=== PATIENT | male | born 1980 | race Caucasian/White ===

== ENCOUNTER 2016-05-23 17:09 | Emergency (ER) | payer OTHER ==
[~2016-05-23] VITALS: Ht 162.6 cm; Wt 92.7 kg
[2016-05-23 17:16] VITALS: TEMP 37.2; Ht 162.6 cm; Wt 92.7 kg
--- NOTE | 2016-05-23 18:01 | DIAGNOSTIC IMAGING REPORT ---
LEFT ANKLE MIN 3 VIEWS ROUTINE CLINICAL HISTORY: LEFT ANKLE INJURY trauma. Pain. COMPARISON: None. DISCUSSION: The bones and joint spaces appear intact. There is no evidence of fracture, dislocation or bony disease. There is no evidence for soft tissue swelling. IMPRESSION: Negative study. Electronically signed by: Juan Batres M.D. 05/23/2016 6:00 PM Dictated Date/Time: 05/23/2016 5:59 PM
[2016-05-23] MEDS ORDERED: IBUP-1050 PO (18:45)
--- NOTE | 2016-05-23 19:08 | DIAGNOSTIC IMAGING REPORT ---
LEFT FOOT MIN 3 VIEWS ROUTINE CLINICAL HISTORY: L foot pain pain COMPARISON: None. DISCUSSION: The bones and joint spaces appear intact. There is no evidence of fracture, dislocation or bony disease. There is no evidence for soft tissue swelling. IMPRESSION: Negative study. Electronically signed by: Juan Batres M.D. 05/23/2016 7:07 PM Dictated Date/Time: 05/23/2016 7:07 PM
[2016-05-23 20:21] VITALS: BP 147/98; PULSE 72; O2SAT 98
--- NOTE | 2016-05-24 03:06 | EMERGENCY ROOM VISIT NOTE ---
ED Visit Note First contact with patient: 17:42 CHIEF COMPLAINT: Left foot and ankle pain HISTORY OF PRESENT ILLNESS: Mr. Moncada is a 36-year old white male who is brought via wheelchair into the ED complaining of left foot pain. He reports approximately 1 hour ago he was walking at work and developed an acute onset of left foot pain under the great toe. Since that time he has been having severe pain during the push off phase of ambulation over the sesamoid bones under the great toe. He describes his pain as a sharp sensation. He rates his discomfort 5/10. With ambulation and pushing off his pain does radiate superiorly and around the posterior aspect of the ankle to the lower tibia area. His pain is improved with non-ambulation or weightbearing. He has not taken any medications for pain prior to arrival at the hospital. He denies any associated symptoms including hip pain, knee pain, lower leg pain, leg weakness/numbness/tingling. Additionally he denies any previous significant injuries or surgeries to the left ankle or foot. REVIEW OF SYSTEMS: As noted above in History of Present Illness. PAST MEDICAL HISTORY: CURRENT MEDICATIONS: Ibuprofen. ALLERGIES TO MEDICATIONS: Patient denies. SOCIAL HISTORY: PHYSICAL EXAM: Vital Signs: Date Time Temp Pulse Resp B/P Pulse Ox O2 Delivery O2 Flow Rate FiO2 05/23/16 20:21 72 18 147/98 98 Room Air 05/23/16 17:16 37.2 81 18 179/95 97 Room Air General: 36 year old male in mild distress due to pain, nontoxic-appearing, afebrile and hemodynamically stable. Neurological: Awake, alert, oriented to person place and time. Answering questions appropriately and following commands. Skin: Warm dry and pink. No soft tissue trauma noted. Left Lower Extremity: No gross eloy deformities. No tenderness in the hip or knee. Mild tenderness over the posterior aspect of the medial malleolus without bony deformity, bony crepitus, swelling or ecchymosis. Moderate tenderness over the medial aspect of the foot which extends to the plantar surface and over the sesamoid bones of the great toe. There is also moderate tenderness in the interphalangeal joint of the toe. I do not appreciate any bony tenderness or swelling in this area. Throughout the toes the skin was warm and pink and capillary refill is brisk. He was able to distinguish light sensations through all dermatomes of the foot. Distal pulses are intact. No calf tenderness or cords. No dependent edema. ED COURSE: Patient is assessed as noted above. Left Ankle X-Rays: Was read by myself and the radiologist showing no acute fractures or dislocations. Left Foot X-Rays: Was read by myself and the radiologist shows a questionable fracture of the lateral sesamoid bone of the great toe; it should be noted this is the primary area of his painful discomfort. No previous films were noted for comparison. Patient is given ice for pain, swelling and comfort; patient was offered pain medications and refused. Patient is placed in a postop shoe and is instructed on crutch use. Patient is educated about his condition and instructed on his treatment plan; he verbalizes understanding and agreement with the our plan. CLINICAL IMPRESSION: Left great toe sesamoid fracture. Work related injury. DISPOSITION: Patient is discharged to home in stable condition accompanied by his ; prior to departure he was reassessed and subjectively reported he was feeling the same. PLAN: Comfort measures were discussed with the patient. Patient was placed on work restrictions for only nonweightbearing activities. Patient should follow-up with an Workmen's import/export specialist for possible referral to orthopedics. Patient should return ED as needed for increasing pain or swelling or any new/ concerning symptoms.
== END 2016-05-23 20:35 | disposition home or self-care (01) ==
LOC: C.EDB 17:10 → C.EDD 20:35
DX: S92.812A Other fracture of left foot, initial encounter for closed fracture (principal); X58.XXXA Exposure to other specified factors, initial encounter; Y92.89 Other specified places as the place of occurrence of the external cause; Y99.0 Civilian activity done for income or pay

== ENCOUNTER 2016-08-01 11:53 | Emergency (ER) | payer OTHER ==
[~2016-08-01] VITALS: Ht 170.2 cm; Wt 91.9 kg
[~2016-08-01 11:53] MED LIST: IBUP-1050 PO
[2016-08-01 11:59] VITALS: TEMP 36.8; Ht 170.2 cm; Wt 91.9 kg
--- NOTE | 2016-08-01 12:38 | DIAGNOSTIC IMAGING REPORT ---
SOFT TISSUE NECK CLINICAL HISTORY: neck pain following swallowing food COMPARISON STUDY: Lateral view the cervical spine dated 05/28/2008 FINDINGS: There is nonspecific asymmetry in the retropharyngeal soft tissues. There is a punctate radiopacity visualized superior to the epiglottis on the lateral view. This is not confirmed on the AP film. Granular ringlike radiopacities projected over the superior C4 vertebral body to the right of midline on the AP film are not visualized the lateral film and are likely artifactual. IMPRESSION: 1. Nonspecific asymmetry in the retropharyngeal soft tissues 2. Punctate radiopacity located superior to the epiglottis on the lateral view. 3. No epiglottic masses identified. Electronically signed by: Samm Green M.D. 08/01/2016 12:37 PM Dictated Date/Time: 08/01/2016 12:32 PM
[2016-08-01 12:50] LABS: BASO % 0.6 %; BASO ABS # 0.04 K/uL (0-0.2); COMPLETE YES; EOS % 1.2 %; HEMATOCRIT 45.4 % (42-52); IG% 0.1 %; LYMPH % 29.4 %; LYMPH ABS # 2.04 K/uL (1.2-3.4); MEAN CELL VOLUME 85.7 fL (80-100); MEAN CORPUSCULAR HEMOGLOBIN 28.7 pg (25-34); MEAN CORPUSCULAR HGB CONC 33.5 g/dl (32-36); MONO % 6.8 %; NEUT % 61.9 %; PLATELET COUNT 175 K/uL (130-400); WHITE BLOOD COUNT 6.93 K/uL (4.8-10.8)
[2016-08-01 13:12] LABS: BUN/CREATININE RATIO 11.8 (10-20); CALCIUM 8.7 mg/dl (8.5-10.1); CREATININE 1.1 mg/dl (0.60-1.40); POTASSIUM 4.2 mmol/L (3.5-5.1)
--- NOTE | 2016-08-01 13:24 | CONSULTATION REPORT ---
DATE OF CONSULTATION: 08/01/2016 EMERGENCY ROOM CONSULTATION HISTORY: This 36-year-old male was cleaning a grill with a metal scrub brush. He made some mountain pies and when he was swallowing, he felt jagging sensation on the left side of the throat. He immediately spit, but continued to have pain from Monday to today, although he said his pain is diminishing each day. PAST MEDICAL HISTORY: Otherwise, negative. ALLERGIES: None known. CURRENT MEDICATIONS: Ibuprofen. REVIEW OF SYSTEMS: Otherwise, negative. PHYSICAL EXAMINATION: GENERAL: WNWD male, in no acute distress. VITAL SIGNS: Temperature 36.8, BP 154/97, pulse 74, respirations 20, temperature is 36.8. HEAD: Normocephalic. EYES: Normal. EARS: Tympanic membranes intact. NOSE: Septal deviation to the left. THROAT: 3+ tonsillar hypertrophy with Midline uvula with no evidence of foreign body visible and no erythema, no sign of abscess. NECK: Supple, no adenopathy. IMAGING DATA: The lateral neck soft tissue x-ray showed a nonspecific asymmetry with punctate radiopacity superior to the epiglottis; on the lateral view, but not on the AP view, although specifically there is no sign of a stainless steel wire brush needle. IMPRESSION: Possible foreign body in pharynx. RECOMMENDATIONS: The patient should stay on a soft diet and follow up with me tomorrow if he is getting worse or next week if he continues to get better. If his symptoms does increase overnight, I will take him to the operating room for direct laryngoscopy and further exploration of his throat for foreign body.
[2016-08-01 13:36] VITALS: BP 140/78; PULSE 62; O2SAT 97
--- NOTE | 2016-08-01 17:59 | EMERGENCY ROOM VISIT NOTE ---
History Report prepared by Day: Rianna Toledo Under the Supervision of: Dr. Luis Desai D.O. First contact with patient: 12:02 Chief Complaint: FOOD BOLUS Stated Complaint: FEELS LIKE SOMETHING IN BACK OF THROAT History of Present Illness The patient is a 36 year old male who presents to the Emergency Room with complaints of constant throat discomfort that started 2 days ago. The patient states that he ate mountain pies 2 nights ago and ever since then it has felt like something is "lodged in the back of his throat." He states that he took one bite of the mountain pie then it felt like the food got stuck in the back of his throat. The patient has been experiencing pain in his throat ever since then. The patient vomited after trying to swallow that bite. He did not see anything in the vomit that could have scratched his throat. He states that he is concerned that there might have been a metal wire in the mountain pies because he cleaned the pie pans with a metal bristle before they made the mountain pies. He states that he is able to drink fluids and the discomfort is worse with cold water. The patient experienced nausea and vomiting earlier today after drinking water around 1000. The patient states that he has not eaten anything today because he was worried that he might need to have a scope done. He originally denied any ear pain, but after examination he started to experience some pain radiating into his left ear. The patient denies chest pain , shortness of breath, diarrhea, and pain or burning with urination. Source of History: patient Onset: 2 days ago Position: throat Quality: other (throat discomfort) Timing: constant Modifying Factors (Worsening): drinking (cold water), other (swallowing) Associated Symptoms: + nausea, + vomiting, No chest pain, No SOB, No diarrhea, No urinary symptoms (pain or burning with urination) Note: left ear pain Review of Systems See HPI for pertinent positives & negatives. A total of 10 systems reviewed and were otherwise negative. Past Medical & Surgical Medical Problems: (1) Carpal Tunnel Syndrome (2) Chronic Rhinitis (3) Chronic Sinusitis Nos (4) Esophageal Reflux (5) Palpitations Family History Cancer Diabetes mellitus Hypertension Social History Smoking Status: Never Smoker Alcohol Use: none Marital Status: Occupation Status: employed Current/Historical Medications Scheduled Ibuprofen (Advil), 200 MG PO PRN Allergies Coded Allergies: No Known Allergies (Unverified , 01/28/11) Physical Exam Vital Signs Date Time Temp Pulse Resp B/P (MAP) Pulse Ox O2 Delivery O2 Flow Rate FiO2 08/01/16 13:36 62 17 140/78 97 08/01/16 11:59 36.8 74 20 154/97 98 Room Air Physical Exam GENERAL: alert, sitting up in bed, well appearing, well nourished, no distress, non-toxic EYE EXAM: normal conjunctiva OROPHARYNX: no exudate, no erythema, lips, buccal mucosa, and tongue normal and mucous membranes are moist NECK: supple, no nuchal rigidity, no adenopathy, non-tender LUNGS: Clear to auscultation. Normal chest wall mechanics HEART: no murmurs, S1 normal and S2 normal ABDOMEN: abdomen soft, non-tender, normo-active bowel sounds, no masses, no rebound or guarding. SKIN: no rashes and no bruising UPPER EXTREMITIES: upper extremities are grossly normal. LOWER EXTREMITIES: No pitting edema. NEURO EXAM: Normal sensorium, cranial nerves II-XII grossly intact, normal speech, no gross weakness of arms, no gross weakness of legs. Medical Decision & Procedures ER Provider Diagnostic Interpretation: Radiology results as stated below per my review and the radiologist's interpretation: SOFT TISSUE NECK FINDINGS: There is nonspecific asymmetry in the retropharyngeal soft tissues. There is a punctate radiopacity visualized superior to the epiglottis on the lateral view. This is not confirmed on the AP film. Granular ringlike radiopacities projected over the superior C4 vertebral body to the right of midline on the AP film are not visualized the lateral film and are likely artifactual. IMPRESSION: 1. Nonspecific asymmetry in the retropharyngeal soft tissues 2. Punctate radiopacity located superior to the epiglottis on the lateral view. 3. No epiglottic masses identified. Electronically signed by: Samm Green M.D. 08/01/2016 12:37 PM Dictated Date/Time: 08/01/2016 12:32 PM Laboratory Results 08/01/16 12:35 Red Blood Count 5.30, Mean Corpuscular Volume 85.7, Mean Corpuscular Hemoglobin 28.7, Mean Corpuscular Hemoglobin Concent 33.5, Mean Platelet Volume 11.0, Neutrophils (%) (Auto) 61.9, Lymphocytes (%) (Auto) 29.4, Monocytes (%) (Auto) 6.8, Eosinophils (%) (Auto) 1.2, Basophils (%) (Auto) 0.6, Neutrophils # (Auto) 4.29, Lymphocytes # (Auto) 2.04, Monocytes # (Auto) 0.47, Eosinophils # (Auto) 0.08, Basophils # (Auto) 0.04 08/01/16 12:35 Test 08/01/16 12:35 White Blood Count 6.93 K/uL (4.8-10.8) Red Blood Count 5.30 M/uL (4.7-6.1) Hemoglobin 15.2 g/dL (14.0-18.0) Hematocrit 45.4 % (42-52) Mean Corpuscular Volume 85.7 fL (80-100) Mean Corpuscular Hemoglobin 28.7 pg (25-34) Mean Corpuscular Hemoglobin Concent 33.5 g/dl (32-36) Platelet Count 175 K/uL (130-400) Mean Platelet Volume 11.0 fL (7.4-10.4) Neutrophils (%) (Auto) 61.9 % Lymphocytes (%) (Auto) 29.4 % Monocytes (%) (Auto) 6.8 % Eosinophils (%) (Auto) 1.2 % Basophils (%) (Auto) 0.6 % Neutrophils # (Auto) 4.29 K/uL (1.4-6.5) Lymphocytes # (Auto) 2.04 K/uL (1.2-3.4) Monocytes # (Auto) 0.47 K/uL (0.11-0.59) Eosinophils # (Auto) 0.08 K/uL (0-0.5) Basophils # (Auto) 0.04 K/uL (0-0.2) RDW Standard Deviation 41.4 fL (36.4-46.3) RDW Coefficient of Variation 13.2 % (11.5-14.5) Immature Granulocyte % (Auto) 0.1 % Immature Granulocyte # (Auto) 0.01 K/uL (0.00-0.02) Anion Gap 7.0 mmol/L (3-11) Est Creatinine Clear Calc Drug Dose 98.4 ml/min Estimated GFR () 98.2 Estimated GFR (Non- 84.7 BUN/Creatinine Ratio 11.8 (10-20) Calcium Level 8.7 mg/dl (8.5-10.1) Total Bilirubin 0.6 mg/dl (0.2-1) Direct Bilirubin 0.1 mg/dl (0-0.2) Aspartate Amino Transf (AST/SGOT) 25 U/L (15-37) Alanine Aminotransferase (ALT/SGPT) 57 U/L (12-78) Alkaline Phosphatase 61 U/L (45-117) Total Protein 8.2 gm/dl (6.4-8.2) Albumin 4.3 gm/dl (3.4-5.0) Laboratory results per my review. ED Course ED COURSE: Vital signs were reviewed and showed hypertension. The patients medical record was reviewed The above diagnostic studies were performed and reviewed. ED treatments and interventions as stated above. 1153: The patient was evaluated in room A2. A complete history and physical examination was performed. 1245: I reviewed the patient's case with Dr. Calix. He is going to evaluate the patient. 1320: Dr. Calix evaluated the patient and did not visualize anything in the patient's throat. He instructed the patient to come into this office tomorrow if his symptoms got worse and he will take him to the OR. 1329: Upon reevaluation, the patient is doing well. I discussed my findings with the patient and he understands and agrees with the treatment plan. Based on the patients age, coexisting illnesses, exam and lab findings the decision to treat as an outpatient was made. The patient remained stable while under my care. The patient appeared well at the time of discharge. Medical Decision Differential diagnoses includes but is not limited to food bolus, foreign body, scratch or tear of esophagus. Medication Reconciliation: I attest that I have personally reviewed the patient' s current medication list. Blood pressure screening: Patient was found to have an elevated blood pressure and was referred to their primary doctor for recheck and further treatment. Patient is a a 36-year-old male who presents the ER following eating a mount pie for pain in the back of his throat. He feels like he has some things stuck back there. CBC along with BMP, LFTs and bilirubin was unremarkable. X-rays of the neck showed a questionable foreign body close to the uvula. ENT was consulted and patient was evaluated. He recommended following up as an outpatient as he was unable to see the object. Patient has been drinking okay. He has no trouble breathing. I felt this is reasonable. If anything worsens he will follow-up and Dr. Calix will taken him to the OR. Discussed with Pt concerning signs and symptoms to watch out for. Pt was instructed to follow up with their PCP and discussed with the patient their option to return to the ED at anytime for persistent or worsening symptoms. The appropriate anticipatory guidance and out-patient management, including indications for return to the emergency department, were explained at length to the patient and understood. Consults Time Called: 1214 Consulting Physician: Dr. Calix - ENT Returned Call: [phone] I reviewed the patient's case with Dr. Calix. He is going to evaluate the patient. Impression Primary Impression: Esophageal foreign body Scribe Attestation The scribe's documentation has been prepared under my direction and personally reviewed by me in its entirety. I confirm that the note above accurately reflects all work, treatment, procedures, and medical decision making performed by me. Departure Information Dispostion Home / Self-Care Referrals Pineda Glover M.D. (PCP) Forms HOME CARE DOCUMENTATION FORM, IMPORTANT VISIT INFORMATION, WORK / SCHOOL INSTRUCTIONS Patient Instructions ED Foreign Body Esophageal Rslv, [facility] Additional Instructions Please follow up with your primary care doctor ENT with in the next 24 hours. Any worsening of your symptoms, please return to the ED immediately. This includes worsening throat pain, fevers, difficulty swallowing, or any other concerning signs or symptoms from your standpoint. Please take Motrin or Tylenol as needed for pain. If it worsens please call ENT tomorrow and he will see you in the office and possible taken you to the OR. Problem Qualifiers Primary Impression: Esophageal foreign body Encounter type: initial encounter Qualified Codes: T18.108A - Unspecified foreign body in esophagus causing other injury, initial encounter
== END 2016-08-01 13:42 | disposition home or self-care (01) ==
LOC: C.EDB 11:54 → C.EDA 13:42
DX: T18.128A Food in esophagus causing other injury, initial encounter (principal); X58.XXXA Exposure to other specified factors, initial encounter; K21.9 Gastro-esophageal reflux disease without esophagitis